=== PATIENT | male | born 1990 | race African-American/Black ===

== ENCOUNTER 2024-12-28 14:28 | Emergency (ER) | payer MEDICAID ==
[~2024-12-28] VITALS: Ht 180.3 cm; Wt 82.0 kg
[~2024-12-28 14:28] MED LIST: CLONAZEPAM
[2024-12-28 14:30] VITALS: PULSE 115; RESP 14; O2SAT 99
[2024-12-28 14:31] VITALS: BP 127/84; TEMP 36.8; O2SAT 99
[2024-12-28] MEDS ORDERED: PHEN51CR24 TP (15:23)
== END 2024-12-28 15:43 | disposition home or self-care (01) ==
LOC: ER 14:28
DX: K64.4 Residual hemorrhoidal skin tags (principal); F41.9 Anxiety disorder, unspecified
CPT/HCPCS: 99282